=== PATIENT | male | born 1985 | race Caucasian/White ===

== ENCOUNTER → 2016-06-08 | Outpatient (CLI) | payer BC | END | disposition home or self-care (01) | LOC: C.LAB 14:30 | PROVIDERS: ATTEND Obstetrics & Gynecology Reproductive Endocrinology | DX: Z11.3 Encounter for screening for infections with a predominantly sexual mode of transmission (principal); Z11.4 Encounter for screening for human immunodeficiency virus [HIV]; Z11.59 Encounter for screening for other viral diseases ==

== ENCOUNTER 2017-05-21 03:56 | Emergency (ER) | payer BC, OTHER ==
[~2017-05-21] VITALS: Ht 172.7 cm; Wt 83.8 kg
[2017-05-21 03:57] VITALS: TEMP 36.8; Ht 172.7 cm; Wt 83.8 kg
[2017-05-21 04:47] LABS: BASO % 0.2 %; BASO ABS # 0.03 K/uL (0-0.2); EOS % 2.6 %; EOS ABS # 0.32 K/uL (0-0.5); HEMATOCRIT 47.1 % (42-52); HEMOGLOBIN 17.8 g/dL (14.0-18.0); IG# 0.03 K/uL (0.00-0.02); LYMPH % 22.3 %; LYMPH ABS # 2.75 K/uL (1.2-3.4); MEAN CELL VOLUME 90.6 fL (80-100); MEAN CORPUSCULAR HEMOGLOBIN 34.2 pg (25-34); MEAN CORPUSCULAR HGB CONC 37.8 g/dl (32-36); MEAN PLATELET VOLUME 11.2 fL (7.4-10.4); MONO % 4.3 %; MONO ABS # 0.53 K/uL (0.11-0.59); NEUT % 70.4 %; NEUT ABS # 8.66 K/uL (1.4-6.5); NUCLEATED RED BLOOD CELL ABS 0.22 K/uL (0-0); PLATELET COUNT 312 K/uL (130-400); RED CELL DISTRIBUTION WIDTH CV 12.9 % (11.5-14.5); WHITE BLOOD COUNT 12.32 K/uL (4.8-10.8)
[2017-05-21] MEDS ORDERED: MULT-506 PO (04:53)
[2017-05-21] MEDS ORDERED: OMEG10007 PO (04:54)
[2017-05-21] MEDS ORDERED: ASCO1CAP3 PO (04:54)
[2017-05-21] MEDS ORDERED: CHOL1000 PO (04:56)
[2017-05-21] MEDS ORDERED: MAGN400C2 PO (04:57)
[2017-05-21] MEDS ORDERED: COEN100C11 PO (04:58)
[2017-05-21] MEDS ORDERED: [UNRECOGNIZED DRUG - OTHER] EXT (04:59)
[2017-05-21 06:01] LABS: ISTAT CREATININE 0.9 mg/dl (0.6-1.3); ISTAT IONIZED CALCIUM 1.14 mmol/l (1.12-1.32); ISTAT POTASSIUM 3.7 mEq/L (3.3-5.0)
--- NOTE | 2017-05-21 06:57 | DIAGNOSTIC IMAGING REPORT ---
CHEST 2 VIEWS ROUTINE CLINICAL HISTORY: 32 years-old Male presenting with chest pain, abdominal pain radiating into the chest. TECHNIQUE: PA and lateral views of the chest were obtained. COMPARISON: None. FINDINGS: Cardiomediastinal silhouette normal. Lungs and pleural spaces clear. Osseous structures normal. Upper abdomen normal. IMPRESSION: 1. No acute cardiopulmonary disease. Electronically signed by: James Mcgowan M.D. 05/21/2017 6:56 AM Dictated Date/Time: 05/21/2017 6:55 AM
[2017-05-21 07:34] LABS: ALBUMIN 3.3 gm/dl (3.4-5.0); ALKALINE PHOSPHATASE 60 U/L (45-117); ALT/SGPT 43 U/L (12-78); BLOOD UREA NITROGEN 11 mg/dl (7-18); CALCIUM 7.1 mg/dl (8.5-10.1); CARBON DIOXIDE 22 mmol/L (21-32); CKMB 1.2 ng/ml (0.5-3.6); CREATININE 1.01 mg/dl (0.60-1.40); GLUCOSE 108 mg/dl (70-99); SODIUM 138 mmol/L (136-145); TOTAL PROTEIN 6.8 gm/dl (6.4-8.2)
[2017-05-21] MEDS ORDERED: OMEP20CA59 PO (07:49)
--- NOTE | 2017-05-21 07:51 | EMERGENCY ROOM VISIT NOTE ---
History First contact with patient: 04:04 Chief Complaint: CHEST PAIN Stated Complaint: CYCLING CHEST PAIN Nursing Triage Summary: Sharp chest pains since 0200, was still awake. Epigastric pain referring to left shoulder. Feels cold. History of Present Illness The patient is a 32 year old male who presents to the Emergency Room with complaints of intermittent chest pain which began at 2:00 this morning. The patient describes the pain as sharp, and states it lasts approximately 10 rate he states the pain begins in the epigastric area, and radiates into the left side of the chest and towards the left shoulder. He states he is also feeling cold. He denies any difficulty breathing, nausea, diarrhea, numbness or tingling. He denies any recent illness, and denies fever. When the pain began , the patient was already awake, and was playing video games. 2 hours prior, he had eaten Ramen noodles. The pain is worse with standing, walking, and sitting upright. He states it improves with lying supine. He does not have any history of this type of pain, but does state he had a dull pain approximately 8 years ago, did have an echocardiogram performed at that time which was normal. 2 weeks ago, the patient states he was sick with the flu, but has been feeling better. He has a significant family history of DE at a relatively young age in his maternal grandfather. He does have a history of borderline hyperlipidemia, but states his labs have been well-controlled. Review of Systems A complete 10 point review of systems was reviewed with the patient with pertinent positives and negatives as per history of present illness. All else were negative. Past Medical/Surgical History Syncope Social History Smoking Status: Never Smoker Smokeless Tobacco Use: No Alcohol Use: occasionally Drug Use: none Marital Status: Housing Status: lives with family Current/Historical Medications Scheduled Ascorbic Acid (Vitamin C), 1,000 MG PO DAILY Cholecalciferol (Vitamin D3), 500 MG PO DAILY Coenzyme Q10 (Ubidecarenone) (Coq-10), 100 MG PO DAILY Fish Oil ([place]-3), 2 GM PO DAILY Magnesium Oxide (Magnesium Oxide), 400 MG PO DAILY Multivitamin (Multivitamin), 1 TAB PO DAILY Omeprazole (Prilosec), 20 MG PO DAILY [dermatitis cream], 1 APPLN EXT DIRECTED Physical Exam Vital Signs Date Time Temp Pulse Resp B/P (MAP) Pulse Ox O2 Delivery O2 Flow Rate FiO2 05/21/17 07:01 73 14 119/77 98 05/21/17 06:31 82 18 123/78 98 05/21/17 06:09 81 15 123/84 98 05/21/17 05:56 80 13 98 05/21/17 05:41 83 18 98 05/21/17 04:36 86 97 05/21/17 04:31 130/93 98 05/21/17 04:26 98 26 05/21/17 04:11 87 15 99 Room Air 05/21/17 04:07 144/96 05/21/17 04:05 85 05/21/17 03:57 36.8 92 16 141/93 99 Room Air Physical Exam VITALS: Vitals are noted on the nurse's note and reviewed by myself. Vital signs stable. GENERAL: This is a 32-year-old white male, in no acute distress, nondiaphoretic , well-developed well-nourished. SKIN: The skin was without rashes, erythema, edema, or bruising. There is no tenting of the skin. Capillary reflex less than 2 seconds. HEAD: Normocephalic atraumatic. EARS: External auditory canals clear, tympanic membranes pearly escobedo without erythema or effusion bilaterally. EYES: Pupils equal round and reactive to light and accommodation. Conjunctivae without injection, sclerae without icterus. Extraocular movements intact. NOSE: Patent, turbinates without inflammation or discharge. No sinus tenderness. MOUTH: Mucous membranes moist. Tonsils are not enlarged. Pharynx without erythema or exudate. Uvula midline. Airway patent. Tongue does not deviate. NECK: Supple without nuchal rigidity. No lymphadenopathy. No thyromegaly. Cervical spine is nontender. No JVD. HEART: Regular rate and rhythm without murmurs gallops or rubs. LUNGS: Clear to auscultation bilaterally without wheezes, rales or rhonchi. No dullness to percussion. No retractions or accessory muscle use. ABDOMEN: Positive bowel sounds x 4. Normal tympanic percussion. Soft, nontender, without masses or organomegaly. Millan sign negative. No guarding or rebound tenderness. MUSCULOSKELETAL: No muscle atrophy, erythema, or edema noted. Full range of motion without joint tenderness in all extremities. No tenderness to palpation. No reproducible chest pain, however palpation does provide patient with a similar sensation. Normal gait. Strength 5/5 throughout. NEURO: Patient was alert and oriented to person place and time. Normal sensation to light and sharp touch. Deep tendon reflexes 2+ throughout. No focal neurological deficits. Medical Decision & Procedures ER Provider Diagnostic Interpretation: CXR: FINDINGS: Cardiomediastinal silhouette normal. Lungs and pleural spaces clear. Osseous structures normal. Upper abdomen normal. IMPRESSION: 1. No acute cardiopulmonary disease. Laboratory Results 05/21/17 04:25 Red Blood Count 5.20, Mean Corpuscular Volume 90.6, Mean Corpuscular Hemoglobin 34.2, Mean Corpuscular Hemoglobin Concent 37.8, Mean Platelet Volume 11.2, Neutrophils (%) (Auto) 70.4, Lymphocytes (%) (Auto) 22.3, Monocytes (%) (Auto) 4.3, Eosinophils (%) (Auto) 2.6, Basophils (%) (Auto) 0.2, Neutrophils # (Auto) 8.66, Lymphocytes # (Auto) 2.75, Monocytes # (Auto) 0.53, Eosinophils # (Auto) 0.32, Basophils # (Auto) 0.03 05/21/17 06:00 Test 05/21/17 04:25 05/21/17 05:35 05/21/17 05:46 05/21/17 05:48 White Blood Count 12.32 K/uL (4.8-10.8) Red Blood Count 5.20 M/uL (4.7-6.1) Hemoglobin 17.8 g/dL (14.0-18.0) Hematocrit 47.1 % (42-52) Mean Corpuscular Volume 90.6 fL (80-100) Mean Corpuscular Hemoglobin 34.2 pg (25-34) Mean Corpuscular Hemoglobin Concent 37.8 g/dl (32-36) Platelet Count 312 K/uL (130-400) Mean Platelet Volume 11.2 fL (7.4-10.4) Neutrophils (%) (Auto) 70.4 % Lymphocytes (%) (Auto) 22.3 % Monocytes (%) (Auto) 4.3 % Eosinophils (%) (Auto) 2.6 % Basophils (%) (Auto) 0.2 % Neutrophils # (Auto) 8.66 K/uL (1.4-6.5) Lymphocytes # (Auto) 2.75 K/uL (1.2-3.4) Monocytes # (Auto) 0.53 K/uL (0.11-0.59) Eosinophils # (Auto) 0.32 K/uL (0-0.5) Basophils # (Auto) 0.03 K/uL (0-0.2) RDW Standard Deviation 43.0 fL (36.4-46.3) RDW Coefficient of Variation 12.9 % (11.5-14.5) Immature Granulocyte % (Auto) 0.2 % Immature Granulocyte # (Auto) 0.03 K/uL (0.00-0.02) Nucleated RBC Absolute Count (auto) 0.22 K/uL (0-0) Nucleated Red Blood Cells % 1.8 % Urine Color YELLOW Urine Appearance CLEAR (CLEAR) Urine pH 6.0 (4.5-7.5) Urine Specific [place] 1.011 (1.000-1.030) Urine Protein NEG (NEG) Urine Glucose (UA) NEG (NEG) Urine Ketones NEG (NEG) Urine Occult Blood NEG (NEG) Urine Nitrite NEG (NEG) Urine Bilirubin NEG (NEG) Urine Urobilinogen NEG (NEG) Urine Leukocyte Esterase NEG (NEG) Bedside Troponin I < 0.030 ng/ml (0-0.045) Bedside Hemoglobin 16.0 g/dl (14.0-18.0) Bedside Hematocrit 47 % (42-52) Bedside Sodium 139 mEq/L (135-144) Bedside Potassium 3.7 mEq/L (3.3-5.0) Bedside Chloride 104 mEq/L (101-112) Bedside Total CO2 27 mEq/l (24-31) Bedside Blood Urea Nitrogen 13 mg/dl (7-18) Bedside Creatinine 0.9 mg/dl (0.6-1.3) Bedside Glucose (other) 109 mg/dl (70-99) Bedside Ionized Calcium ([place]) 1.14 mmol/l (1.12-1.32) Test 05/21/17 05:52 05/21/17 06:00 05/21/17 06:26 Creatine Kinase MB Ratio (0-3.0) Anion Gap 11.0 mmol/L (3-11) Est Creatinine Clear Calc Drug Dose 108.7 ml/min Estimated GFR () 112.0 Estimated GFR (Non- 96.6 BUN/Creatinine Ratio 10.9 (10-20) Calcium Level 7.1 mg/dl (8.5-10.1) Total Bilirubin 0.5 mg/dl (0.2-1) Aspartate Amino Transf (AST/SGOT) U/L (15-37) Alanine Aminotransferase (ALT/SGPT) 43 U/L (12-78) Alkaline Phosphatase 60 U/L (45-117) Creatine Kinase MB 1.2 ng/ml (0.5-3.6) Troponin I < 0.015 ng/ml (0-0.045) Total Protein 6.8 gm/dl (6.4-8.2) Albumin 3.3 gm/dl (3.4-5.0) Globulin 3.5 gm/dl (2.5-4.0) Albumin/Globulin Ratio 0.9 (0.9-2) Lipase 210 U/L (73-393) ECG Indication: chest pain Rate (beats per minute): 83 Rhythm: normal sinus Findings: no acute ischemic change, no ectopy Comparison ECG Date: no prior available ED Course The patient was seen and evaluated. Initial EKG performed. This was reviewed by myself. IV access obtained, labs drawn. Approximately one hour later, I received notification from the lab that the patient's blood was extremely lipemic, and they were unable to perform the complete metabolic panel or troponin testing. I discussed findings to this point with the patient at bedside. Repeat EKG performed and reviewed by myself, which showed NSR with rate of 89 and no acute ischemia, and was unchanged from previous EKG. [id number] testing was initiated. This was reviewed by myself, however was concerned, if the lab was unable to successfully run the testing, about the accuracy of the [id number] tests. Lab was called and re-john labs and attempt to run them again. Metabolic panel was tested, and able to be performed. This was reviewed by myself. I discussed the findings with the patient at bedside. Discharge instructions reviewed, and the patient was discharged home in good condition. Medical Decision This is a 32-year-old male patient presents to the emergency department today complaining of epigastric pain radiating into the left chest and left shoulder. Cardiac workup here in the emergency department was negative with 2 negative EKGs. The patient had a slightly elevated white blood cell count, which I suspect to be reactive to the events of the evening and his recent illness. Urinalysis was negative for signs of infection. CMP did not show any significant renal, hepatic, or electrolyte abnormalities. Because of lipemic blood, unable to obtain K+ and AST testing. I do not feel that these tests are necessary at this time, but did discuss with the patient that I recommend re- check outpatient. Tropinin testing was negative. Lipase was negative. Suspect a muscular versus gastrointestinal etiology of the patient's symptoms. He'll be given a one to two-week course of Prilosec and attempt to decrease the painful episodes. The patient was encouraged to follow up closely with his primary care provider. Etiologies such as cardiac ischemia, aortic dissection, pulmonary embolism, pneumonia, pneumothorax, musculoskeletal, infections, gastrointestinal, as well as others were entertained. Medication Reconcilliation Current Medication List: was personally reviewed by me Blood Pressure Screening Patient's blood pressure: Normal blood pressure Impression Primary Impression: Non-cardiac chest pain Departure Information Dispostion Home / Self-Care Condition GOOD Prescriptions Omeprazole (Prilosec) 20 Mg Capcr 20 MG PO DAILY for 14 Days, #14 CAP Prov: Aaliyah Lujan, MARTINA 05/21/17 Referrals Pito Cisneros DO (PCP) Patient Instructions ED Chest Pain NonCardiac, ED GERD, My [facility] Additional Instructions You were seen in the emergency department today for epigastric and chest pain. Labs and imaging ruled out emergent causes. As discussed, I suspect a muscular versus reflux etiology of your symptoms. Given a prescription for Prilosec 20 mg here this medications to be taken daily for the next 1-2 weeks. Acetaminophen(Tylenol) may be used for fever or pain. Use 1000mg every six hours as needed. Avoid using more than 3000mg in a 24 hour period. Please follow up with your primary care provider within one week for reevaluation. Return to the emergency department for worsening pain, difficulty breathing, pressure, dizziness, syncope, or other concerning symptoms.
[2017-05-21 08:00] VITALS: BP 113/81; PULSE 80; O2SAT 98
== END 2017-05-21 08:00 | disposition home or self-care (01) ==
LOC: C.EDB 03:57
DX: R07.89 Other chest pain (principal); R10.13 Epigastric pain; D72.829 Elevated white blood cell count, unspecified; Z82.49 Family history of ischemic heart disease and other diseases of the circulatory system